=== PATIENT | female | born 1960 | race Caucasian/White ===

== ENCOUNTER → 2016-06-10 | Outpatient (CLI) | payer BC ==
[~2016-06-10] MED LIST: BYS/5 PO; DOCU-94 PO; LEVO75TA PO; MAGN400T6 PO; MISCCAP80 PO; OMEG10007 PO; SIMV20TA2 PO
--- NOTE | 2016-06-10 13:34 | MAMMOGRAPHY REPORT ---
BILATERAL DIGITAL SCREENING MAMMOGRAM TOMOSYNTHESIS WITH CAD: 06/10/2016 CLINICAL HISTORY: Routine screening. Patient has no complaints. TECHNIQUE: Breast tomosynthesis in addition to standard 2D mammography was performed. Current study was also evaluated with a Computer Aided Detection (CAD) system. COMPARISON: Comparison is made to exam dated: 08/29/2014 mammogram - [facility]. Also 07/04/2012 exam. BREAST COMPOSITION: There are scattered areas of fibroglandular density in both breasts. FINDINGS: No suspicious masses, calcifications, or areas of architectural distortion are noted in e ither breast. There has been no significant interval change compared to prior exams. IMPRESSION: ACR BI-RADS CATEGORY 1: NEGATIVE There is no mammographic evidence of malignancy. A 1 year screening mammogram is recommended. The p atient will receive written notification of the results. Approximately 10% of breast cancers are not detected with mammography. A negative mammographic repor t should not delay biopsy if a clinically suggestive mass is present. Lula Merino M.D. ah/:06/10/2016 07:53:58 Net Trainer: Raven CAO(R)(Sasha), [facility] letter sent: Normal 1/2 BI-RADS Code: ACR BI-RADS Category 1: Negative
== END | disposition home or self-care (01) ==
LOC: C.MAMM 07:09
PROVIDERS: ATTEND Family Medicine
DX: Z12.31 Encounter for screening mammogram for malignant neoplasm of breast (principal)

== ENCOUNTER → 2016-12-18 | Outpatient (CLI) | payer BC ==
[2016-12-18 11:11] LABS: ALT/SGPT 37 U/L (12-78); AST/SGOT 22 U/L (15-37); BLOOD UREA NITROGEN 20 mg/dl (7-18); BUN/CREATININE RATIO 26.8 (10-20); CALCIUM 8.4 mg/dl (8.5-10.1); CARBON DIOXIDE 27 mmol/L (21-32); CHLORIDE 107 mmol/L (98-107); CREATININE 0.73 mg/dl (0.60-1.20); GLUCOSE 89 mg/dl (70-99); SODIUM 139 mmol/L (136-145)
[2016-12-18 11:22] LABS: ALKALINE PHOSPHATASE 54 U/L (45-117); CHOLESTEROL 173 mg/dl (0-200); CHOLESTEROL/HDL RATIO 2.8; HDL CHOLESTEROL 61 mg/dl; LDL CHOLESTEROL CALCULATED 92 mg/dl; TRIGLYCERIDES 100 mg/dl (0-150); VERY LOW DENSITY LIPOPROT CALC 20 mg/dl
== END | disposition home or self-care (01) ==
LOC: C.LABBC 09:16
PROVIDERS: ATTEND Physician Assistant
DX: Z00.00 Encounter for general adult medical examination without abnormal findings (principal); E03.9 Hypothyroidism, unspecified

== ENCOUNTER 2022-03-23 08:39 | Observation (INO) ==
--- NOTE | 2022-03-04 13:15 | PAT Medication Instructions ---
Medication Instructions Date of Service March 04, 2022 Home Medications Medication Instructions Recorded buspirone 5 mg tablet 5 mg PO TID PRN anxiety #30 tabs 02/02/21 doxycycline hyclate 100 mg capsule 100 mg PO BID #14 caps 03/03/22 simvastatin 20 mg tablet See Rx Instructions .Route 03/03/22 .COMPLEX #90 tabs Lactobacillus acidophilus-Bifidobac.animalis 31 billion cell capsule 1 cap PO QAM omega-3 acid ethyl esters 1 gram capsule 1 cap PO HS magnesium oxide 500 mg capsule 400 mg PO HS docusate sodium 100 mg capsule (Colace) 100 mg PO DAILY PRN Constipation buspirone 5 mg tablet 5 mg PO TID PRN anxiety levothyroxine 75 mcg tablet 75 mcg PO QAM lisinopril 5 mg tablet 5 mg PO QAM nebivolol 10 mg tablet 10 mg PO QAM tramadol 50 mg tablet 50 mg PO HS PRN Pain/sleep doxycycline hyclate 100 mg capsule 100 mg PO BID simvastatin 20 mg tablet See Rx Instructions Continue as directed doxycycline hyclate 100 mg capsule 100 mg PO BID simvastatin 20 mg tablet See Rx Instructions STOP taking 2 weeks before surgery omega-3 acid ethyl esters 1 gram capsule 1 cap PO HS DO NOT take the morning of surgery Lactobacillus acidophilus-Bifidobac.animalis 31 billion cell capsule 1 cap PO QAM docusate sodium 100 mg capsule (Colace) 100 mg PO DAILY PRN Constipation lisinopril 5 mg tablet 5 mg PO QAM Take morning of surgery With a small sip of water, OTHERWISE NOTHING TO EAT OR DRINK AFTER MIDNIGHT: buspirone 5 mg tablet 5 mg PO TID PRN anxiety (if needed) levothyroxine 75 mcg tablet 75 mcg PO QAM nebivolol 10 mg tablet 10 mg PO QAM Take evening before surgery magnesium oxide 500 mg capsule 400 mg PO HS docusate sodium 100 mg capsule (Colace) 100 mg PO DAILY PRN Constipation (if needed) buspirone 5 mg tablet 5 mg PO TID PRN anxiety (if needed) tramadol 50 mg tablet 50 mg PO HS PRN Pain/sleep (if needed) Other Notes If you have any questions please call us at [phone] or [phone] or [phone] or [phone]
--- NOTE | 2022-03-09 15:09 | Anesthesiology Consultation ---
Date of Service March 09, 2022 Assessment & Plan (1) Encounter for pre-operative examination: - Outpatient joint assessment: Patient is currently scheduled for inpatient pathway. If re-evaluated pending system levels during current pandemic/surgeon requests outpatient pathway, patient is acceptable candidate for outpatient joint program from anesthesia standpoint pending surgeon's office assessment of pt motivation/support/completion of same day joint program preop requirements. Chart Review Chart Review: Acceptable Risk for Surgery and Patient seen in Pre Admission Testing Teaching & Discussion Pre-Anesthesia Teaching/Discussion Notes: Instructed NPO after midnight before surgery, except medications with 15 cc of water. Medication instructions provided according to the PAT guidelines. History Surgery Operation Date: 03/23/22 11:50 Proposed Procedures p Right Total Knee Arthroplasty - Joe Palomo DO Height/Weight Height: 5 ft 3.5 in Weight: 88.451 kg Allergies Allergy/AdvReac Type Severity Reaction Status Date / Time Penicillins Allergy Mild RASH Verified 03/04/22 11:58 Medications Home Medications Medication Instructions Recorded Confirmed Last Taken Lactobacillus 1 cap PO QAM 09/20/18 03/04/22 Unknown acidophilus-Bifidobac.animalis 31 billion cell capsule omega-3 acid ethyl esters 1 gram 1 cap PO HS 09/20/18 03/04/22 Unknown capsule magnesium oxide 500 mg capsule 400 mg PO HS 04/02/19 03/04/22 Unknown docusate sodium 100 mg capsule 100 mg PO DAILY PRN Constipation 12/11/19 03/04/22 Unknown (Colace) levothyroxine 75 mcg tablet 75 mcg PO QAM 02/26/22 03/04/22 Unknown lisinopril 5 mg tablet 5 mg PO QAM 02/26/22 03/04/22 Unknown nebivolol 10 mg tablet 10 mg PO QAM 02/26/22 03/04/22 Unknown tramadol 50 mg tablet 50 mg PO HS PRN Pain/sleep 02/26/22 03/04/22 Unknown doxycycline hyclate 100 mg capsule 100 mg PO BID #14 caps 03/03/22 03/04/22 Unknown simvastatin 20 mg tablet See Rx Instructions .Route 03/03/22 03/04/22 Unknown .COMPLEX #90 tabs Past Medical History Medical History (Updated 03/10/22 @ 11:48 by Beatriz Buck PA-C) Dyslipidemia Dysphagia persistent since 12/2021 dilatation with both foods and liquids, denies choking; sees GI 03/11/22 History of blood transfusion 1976 during childbirth, vaginal delivery Hx of chest pain ~2019, had stress test>no findings, "due to anxiety" Hypertension variable per pt, typically in good range Hypothyroidism Obesity (BMI 30-39.9) Sinus infection onset of symptoms 1 week prior, dx sinus infection by PCP, improvement since starting doxycycline, reports two negative COVID tests by employer, rare residual cough now nonproductive Patient denies h/o stroke, seizures, heart attack, heart failure, DM, or blood clots. Exercise / Class Metabolic Activity II 4-5 Yardwork/Stairs/Walk up hill (denies CP or SOB with 1 FOS) Past Family History Family History Mother Diabetes Myocardial infarction Aunt Breast cancer Grandfather (Maternal) Colorectal cancer Past Surgical History Surgical History (Updated 03/04/22 @ 11:58 by Odette Martínez RN) History of appendectomy History of bunionectomy History of carpal tunnel release of both wrists History of esophagogastroduodenoscopy (EGD) 12/2021; w/dilation History of total left knee replacement History of tubal ligation Hx of arthroscopy of knee rt. Hx of colonoscopy Past Anesthesia History No Hx of Anesthesia Complications and No Family Hx of Anesthesia Complications History of PONV No Hx of PONV and No Hx of Motion Sickness Social History Smoking Status: Never smoker Do You Dip or Chew Tobacco: No Hx Alcohol Use: Yes Alcohol type: beer alcohol intake frequency: holidays/special occasions only Hx Substance Use: No substance use type: does not use Review of Systems Snoring, denies witnessed apneas. Patient denies chest pain, shortness of breath, dyspnea on exertion, fever, chills, wheezing, or palpitations. Physical Exam Vital Signs Vitals BP 134/80 P 60 TEMP 98.3 SP02 98% on RA RESP 18 Physical Full cervical extension range of motion without pain TMD 3.5 finger breadths Mallampati Score 1 Dentition: intact, several caps/crowns; denies chipped or loose teeth, implants or bridges Lungs: normal respiratory effort. Clear throughout to auscultation, no adventitious breath sounds Cardiac: regular rate and rhythm, no murmurs noted Carotid arteries: negative bruit bilat Lab Results Anesthesia Preop Results Results Anesthesia Widget: WBC 6.37 K/ul (4.8-10.8) 03/09/22 Hgb 12.4 g/dl (12.0-16.0) 03/09/22 Hct 35.9 % (34.1-44.9) 03/09/22 Plt 340 K/uL (130-400) 03/09/22 Na 139 mmol/L (136-145) 03/09/22 K 4.1 mmol/L (3.5-5.1) 03/09/22 Cl 104 mmol/L (98-107) 03/09/22 CO2 28 mmol/L (21-32) 03/09/22 BUN 19 mg/dl (6-23) 03/09/22 Creat 0.71 mg/dl (0.6-1.2) 03/09/22 Glucose Level 87 mg/dl (70-99(Fasting)) 03/09/22 PT 10.7 Seconds (9.0-12.0) 03/09/22 PTT 25.9 Seconds (21.0-31.0) 03/09/22 INR 1.0 (0.9-1.1) 03/09/22 HA1c 5.4 % (4.5-5.6) 03/09/22 Urine Color Yellow 03/09/22 Urine Appearance Clear (Clear) 03/09/22 Urine pH 5.5 (4.5-7.5) 03/09/22 Urine Specific [place] 1.020 (1.000-1.030) 03/09/22 Urine Protein Negative (Negative) 03/09/22 Urine Glucose (UA) Negative (Negative) 03/09/22 Urine Ketones Negative (Negative) 03/09/22 Urine Blood Negative (Negative) 03/09/22 Urine Nitrite Negative (Negative) 03/09/22 Urine Bilirubin Negative (Negative) 03/09/22 Urine Urobilinogen Negative (Negative) 03/09/22 Urine Leukocyte Esterase 1+ (Negative) H 03/09/22 Urine WBC (Auto) 1-5 /hpf (0-5) 03/09/22 Urine RBC (Auto) 0-4 /hpf (0-4) 03/09/22 Urine Hyaline Casts (Auto) 0 /lpf (0-5) 03/09/22 Urine Epithelial Cells (Auto) 20-30 /lpf (0-5) H 03/09/22 Urine Bacteria (Auto) Negative (Negative) 03/09/22 Blood Type A Negative 03/09/22 Antibody Screen NEGATIVE 03/09/22 Testing Electrocardiogram Date: 03/09/22 NSR, rate 61 bpm Chest X-Ray Date: 03/09/22 No lines and tubes are seen. The cardiomediastinal silhouette is normal. The lungs are clear. No evidence of pleural effusion or pneumothorax. IMPRESSION: No acute chest disease. Stress Test Date: 01/17/20 Exercise METS 7 MPHR 86% Negative for ischemia Normal LV wall motion Mild LVH Mild LA dilatation EF 60-65% COVID-19 Risk Screen Screening Information COVID-19 Screen Date: 03/09/22 Exposure 21 Days Family/Household +COVID Last 21 Days: No Exposure 10 Days Any COVID Exposure Last 10 Days: No Symptoms Last 10 Days Experienced COVID Sx Last 10 Days: No + COVID 0-90 Days COVID + in Last 0-90 Days: No
[~2022-03-23 08:39] MED LIST changes: +ACETAMINOPHEN 500 MG TAB PO SCH; +BUPIVACAINE 0.25% 30 ML VIAL ONE; +BUPIVACAINE 0.5 % 5 MG/1 ML PF 10ML VIAL ONE; -BYS/5 PO; +CeleBREX 200 MG CAP PO SCH; +DEXAMETHASONE SOD INJ 4 MG/ML VIAL ONE; -DOCU-94 PO; +EPINEPHrine INJ 1 MG/ML AMP ONE; +FAMOTIDINE 20 MG TAB PO SCH; +GABAPENTIN 900 MG DOSE PO SCH; -LEVO75TA PO; +LR 500ML BOLUS, THEN 15ML/HR IV SCH; -MAGN400T6 PO; +METOCLOPRAMIDE HCL 10 MG TABLET PO SCH; -MISCCAP80 PO; -OMEG10007 PO; +ROPIVACAINE 0.5% HCL/PF 150 MG, BUPIVACAINE 0.75% MPF 20 ML, EPINEPHrine 30MG/30ML (OR ... INSTIL SCH; -SIMV20TA2 PO; +TRANEXAMIC ACID 1,000 MG **IV Intra-op IV SCH; +TRANEXAMIC ACID 1,000 MG **IV Pre-op IV SCH; +VANCOMYCIN HCL 1,500 MG in SODIUM CHLORIDE 0.9% 500 ML IV SCH; +dexAMETHasone 4 MG TAB PO SCH
--- NOTE | 2022-03-23 10:12 | History & Physical Bridge Note ---
Date of Service March 23, 2022 History & Physical Bridge Note I have examined the patient, reviewed the History & Physical and in the interval since the performance of the History & Physical I have noted the following changes of clinical significance: no changes noted
[2022-03-23] MEDS ORDERED: fentaNYL citrate 100 MCG/2 ML VIAL ONE (10:41)
[2022-03-23] MEDS ORDERED: MIDAZOLAM HCL 1 MG/ML 2ML VIAL ONE (10:41)
[2022-03-23] MEDS ORDERED: PROPOFOL IV EMULSION 10 MG/ML 20 ML VIAL IV ONE ×2 (10:41→12:43)
[2022-03-23] MEDS ORDERED: LIDOCAINE 2% MPF LOCAL 5 ML VIAL INFIL ONE (10:41)
[2022-03-23] MEDS ORDERED: ATROPINE SULFATE 0.1 MG/ML 10ML SYR IV PRN (11:48)
[2022-03-23] MEDS ORDERED: ePHEDrine sulfate 50 MG/ML AMP IV PRN (11:48)
[2022-03-23] MEDS ORDERED: fentaNYL citrate 100 MCG/2 ML VIAL IV PRN (11:48)
[2022-03-23] MEDS ORDERED: ONDANSETRON INJ 2 MG/ML 2 ML VIAL IV PRN ×2 (11:48→17:01)
[2022-03-23] MEDS ORDERED: ORTHO JOINT ANESTHETIC ONE (12:19)
[2022-03-23] MEDS ORDERED: ONDANSETRON INJ 2 MG/ML 2 ML VIAL ONE (12:46)
[2022-03-23] MEDS ORDERED: ePHEDrine sulfate 50 MG/ML AMP ONE (13:14)
[2022-03-23] MEDS ORDERED: SODIUM CHLORIDE 0.9% INJ 10 ML VIAL ONE (13:14)
--- NOTE | 2022-03-23 13:37 | Operative Report ---
Post Operative Report Pre & Post Diagnosis Operation Date: 03/23/22 11:50 Pre-Op Diagnosis: Osteoarthritis Knee Right Post-Op Diagnosis: Osteoarthritis Knee Right I identified the patient and participated in the time-out.: Yes Procedure Operation Date: 03/23/22 11:50 Actual Procedures p Right Total Knee Arthroplasty(Right) utilizing Lucas & Trovit journey 2 patient matched total knee arthroplasty size femur 5 right tibia 3 right poly 13 right patella 29 rachel- Joe Palomo DO Surgeon Joe Palomo DO Sand Screener Operator MAX Hernandes Estimated Blood Loss 5 Findings Consistent with Post-Op Diagnosis Patient presents with severe end-stage tricompartmental degenerative joint disease of the right knee no response to conservative management above intraoperative findings are noted patient has severe eburnated [id number] marginal osteophytes moderate to large effusion Specimens Bone and cartilage Drains Medium bore Hemovac Anesthesia Type MAC Spinal Regional Complications none Disposition Accompanied Patient To Recovery: No Disposition: Recovery Room Indications Patient presents with severe end-stage DJD having failed attempted conservative management clinic physical therapy anti-inflammatories relative rest activity modification corticosteroid injection viscosupplementation above intraoperative findings were noted Description of Procedure After proper prepping and draping of the Right lower extremity anterior midline incision was made over the region of the extensor extensor mechanism after meticulous hemostasis was obtained and maintained in subcutaneous tissues a medial parapatellar incision was made The patella was subluxed lateralward the medial lateral gutter were cleaned from any hypertrophic synovitis and scar tissue of the distal femoral block was placed and the distal femoral osteotomy cut was made subsequently the chamfers anterior and posterior osteotomy cuts were made utilizing the 4-in-1 block the tibia was subsequently subluxed anteriorward medial and ateral meniscal remnants were excised in their entirety remnants of the anterior and posterior cruciate ligaments were excised in their entirety excellent exposure of the proximal tibia was obtained the tibial osteotomy guide was placed on the proximal tibial osteotomy cut was made once again the knee was irrigated with copious amounts of sterile saline solution the patella was subsequently everted lateralward thickened scar tissue around the patella was removed the patella was subsequently cut utilizing a freehand technique and was drilled prepared for final preparation and placement of patella socially flexion-extension gaps were checked and the equal and symmetric trials were placed to the appropriate femoral and tibial trials with poly-spacer being placed for equal flexion and extension gaps and full range of motion including extension to 0 and flexion to 140 the trial components after having been taken to recovery range of motion was subsequently removed meticulous hemostasis was obtained and maintained subsequently a knee block injection of joint cocktail including ropivacaine 0.5% 150 mg. Bupivacaine 0.5% epinephrine 1-200,030 mL's toradol 30 mg dexamethasone 4 mg ketamine 10 mg clonidine 100 micrograms normal saline solution 30 mg was infiltrated into the soft tissues of the posterior knee medial lateral gutters and periosteal synovium special attention was paid to protect neurovascular structures at all times subsequently trial components having been removed the knee was irrigated with sterile saline solution. debris was removed the proximal tibia was subsequently prepared and was made ready for the placement of the tibial component tibial component was also cemented and tamped into position the femoral component was subsequently placed and cemented in the position the patellar component was subsequently cemented in position because hemostasis once again obtained and maintained wound having been thoroughly irrigated with debridement and debridement lavage was performed as well as a medial parapatellar incision closed with #1 Vicryl in interrupted fashion subcutaneous was closed with #2 Vicryl skin was closed with skin clips. PA-C was necessary for prepping and drapping as well as wound closure of deep fascia Sub cutaneous tissue and skin and was necessary for the case. A sterile compressive dressing was placed patient was taken to recovery in stable condition of report dictated by Dewey I attest to the content of the Intraoperative Record and any orders documented therein. Any exceptions are noted below.Due to the complex nature of the procedure, the entire surgery was performed with the operational assistance of MAX Hernandes. The behavioral modification assistant, under direct supervision, was involved in the actual performance of all aspects of the surgical procedure including hemostasis, tissue retraction and incision, instrument management, patient positioning, and wound closure. I attest to the content of the Intraoperative Record and any orders documented therein. Any exceptions are noted below.
--- NOTE | 2022-03-23 14:35 | Anesthesiology Progress Note ---
Date of Service March 23, 2022 Anesthesia Post Procedure Vital Signs Vital Signs: Temp Pulse Pulse Resp BP Pulse Ox O2 Del Method 03/23/22 14:25 69 16 109/58 L 94 Room Air 03/23/22 14:15 72 16 107/58 L 95 Room Air 03/23/22 14:06 36.7 C 75 17 104/55 L 99 Room Air 03/23/22 09:28 37 C 71 20 158/98 H 98 Room Air Transfer of Care Handoff Completed per policy Notes Mental Status: alert / awake / arousable Patient Amnestic to Procedure: Yes Nausea / Vomiting: adequately controlled Pain: adequately controlled Airway Patency, RR, SpO2: stable & adequate BP & HR: stable & adequate Hydration State: stable & adequate Neuraxial Anesthesia: was administered and sensory block is resolving Anesthetic Complications: no major complications apparent and Pt Satisfied with anesthetic care
--- NOTE | 2022-03-23 15:43 | XRay Report ---
XR knee RT 1 or 2V routine CLINICAL HISTORY: Surgical Post Op TECHNIQUE: 2 views of the right knee were obtained. Comparison: None available at the time of this dictation. FINDINGS: Patient is status post total knee arthroplasty with expected postsurgical changes including soft tiss ue swelling and subcutaneous emphysema. No periarticular lucency or hardware fracture is seen. IMPRESSION: Expected postoperative appearance status post placement of total knee arthroplasty. ACT 112: Negative or not required by law. Electronically signed by: Jesus Hernandez M.D. 03/23/2022 3:42 PM
[2022-03-23] MEDS ORDERED: HYDROmorphone INJ 1 MG/ML SYRINGE IV PRN (17:01)
[2022-03-23] MEDS ORDERED: VANCOMYCIN CONSULT ACTIVE PRN (17:01)
[2022-03-23] MEDS ORDERED: NALOXONE HCL 0.4 MG/1 ML VIAL/CARP IV PRN (17:01)
[2022-03-23] MEDS ORDERED: bisacodyL 10 MG SUPP PR PRN (17:01)
[2022-03-23] MEDS ORDERED: MAGNESIUM HYDROXIDE SUSP 30 ML UDC PO PRN (17:01)
[2022-03-23] MEDS ORDERED: diphenhydrAMINE Capsule 25 MG CAP PO PRN (17:01)
[2022-03-23] MEDS ORDERED: METOCLOPRAMIDE HCL INJ 5 MG/ML 2 ML VIAL IV PRN (17:01)
[2022-03-23] MEDS: SODIUM CHLORIDE 0.9% 1000ML 1,000 ML IV SCH (17:22)
[2022-03-23] MEDS ORDERED: SIMVASTATIN 20 MG TAB PO SCH (21:00)
[2022-03-23] MEDS ORDERED: SENNA 8.6 MG TAB PO SCH (21:00)
[2022-03-23] MEDS ORDERED: MAGNESIUM OXIDE 400 MG TAB PO SCH (21:00)
[2022-03-23] MEDS ORDERED: VANCOMYCIN HCL 1,250 MG in SODIUM CHLORIDE 0.9% 250 ML IV SCH (22:00)
[2022-03-23] MEDS: ASPIRIN 81 MG ECTAB PO SCH (22:13)
[2022-03-23] MEDS: DOCUSATE SODIUM 100 MG CAP PO SCH (22:14)
[2022-03-23] MEDS: ACETAMINOPHEN 500 MG TAB PO SCH (22:15)
[2022-03-23] MEDS: KETOROLAC TROMETHAMINE 15 MG/ML VIAL IV SCH (22:16)
[2022-03-24] MEDS ORDERED: VANCOMYCIN HCL 1,250 MG in SODIUM CHLORIDE 0.9% 500 ML IV SCH (00:15)
[2022-03-24] MEDS: KETOROLAC TROMETHAMINE 15 MG/ML VIAL IV SCH ×2 (04:36→10:19)
[2022-03-24] MEDS: ACETAMINOPHEN 500 MG TAB PO SCH (05:04)
[2022-03-24] MEDS: SODIUM CHLORIDE 0.9% 1000ML 1,000 ML IV SCH (05:40)
[2022-03-24 06:50] LABS: Hematocrit (blood only) 30.7 % (34.1-44.9); Hemoglobin 10.6 g/dl (12.0-16.0); Mean Corpuscular Hemoglobin 30.5 pg (25.0-34.0); Mean Corpuscular Hgb Conc 34.5 g/dL (32.0-36.0); Mean Corpuscular Volume 88.5 fL (80.0-100.0); Mean Platelet Volume 9.6 fL (9.4-12.3); Platelet Count 259 K/uL (130-400); RDW Coefficient of Variation 12.1 % (11.5-14.5); RDW Standard Deviation 39.1 fL (36.4-46.3); Red Blood Count 3.47 M/uL (3.93-5.22); White Blood Count 12.78 K/ul (4.8-10.8)
[2022-03-24 07:18] LABS: BUN Creatinine Ratio 28.6 (10-20); Calcium 8.6 mg/dl (8.5-10.1); Creatinine Clr Calc Pharmacy 78.5 ml/min; Est GFR (African American) 95.2 ml/min; Est GFR (Non-African American) 82.2 ml/min; Potassium 4.2 mmol/L (3.5-5.1)
[2022-03-24] MEDS: DOCUSATE SODIUM 100 MG CAP PO SCH (08:06)
[2022-03-24] MEDS: oxyCODONE HCL IR 5 MG TAB (IMMEDIATE RELEASE) PO PRN ×2 (08:06→12:19)
[2022-03-24] MEDS: ASPIRIN 81 MG ECTAB PO SCH (08:06)
[2022-03-24] MEDS ORDERED: MULTIVITAMIN TAB PO SCH (09:00)
[2022-03-24] MEDS ORDERED: METOPROLOL TARTRATE 50 MG TAB PO SCH (09:00)
[2022-03-24] MEDS ORDERED: lisinopril 5 MG TAB PO SCH (09:00)
[2022-03-24] MEDS ORDERED: LEVOTHYROXINE SODIUM 75 MCG TABLET PO SCH (09:00)
--- NOTE | 2022-03-24 10:58 | Orthopedic Progress Note ---
Date of Service March 24, 2022 Assessment & Plan (1) Arthritis of right knee: Plan: Postop day 1 status post right total knee arthroplasty. PT/OT protocols. Weightbearing as tolerated. DVT prophylaxis-aspirin p.o. twice daily, SCDs, MARCO ANTONIO alexis. Pain management as written. DC planning-patient is planning for home health services upon discharge. Plan for discharge to home today. Admission and Anticipated Discharge Date Admission Date: March 23, 2022 Subjective Postop day 1 Patient sitting in her chair at the bedside. States that she is feeling well. She has had some pain off and on in the operative knee but it has been managed quite well. She was concerned about her blood pressure is normally high however its been running on the low side. This morning's blood pressure was 106/67. Patient denies any shortness of breath, chest pain, lightheadedness when she is up and ambulating. She is hoping to go home today. Physical Exam Physical Exam: Dressings are clean, dry, and intact. Calves are soft nontender. Neurovascular intact. Toes are mobile. She has good dorsiflexion and plantarflexion of the right foot. Results & Data ([facility]) Vital Signs (Past 12 Hours) Vital Signs Temp Pulse Resp BP BP Pulse Ox O2 Del Method 03/24/22 07:38 36.7 C 65 16 106/67 96 Room Air 03/24/22 01:52 36.6 C 75 16 100/61 97 Room Air Laboratory Results Laboratory Results WBC 12.78 K/ul (4.8-10.8) H 03/24/22 06:37 RBC 3.47 M/uL (3.93-5.22) L 03/24/22 06:37 Hgb 10.6 g/dl (12.0-16.0) L 03/24/22 06:37 Hct 30.7 % (34.1-44.9) L 03/24/22 06:37 MCV 88.5 fL (80.0-100.0) 03/24/22 06:37 MCH 30.5 pg (25.0-34.0) 03/24/22 06:37 MCHC 34.5 g/dL (32.0-36.0) 03/24/22 06:37 RDW Std Deviation 39.1 fL (36.4-46.3) 03/24/22 06:37 RDW Coeff of Flakita 12.1 % (11.5-14.5) 03/24/22 06:37 Plt Count 259 K/uL (130-400) 03/24/22 06:37 MPV 9.6 fL (9.4-12.3) 03/24/22 06:37 Sodium 137 mmol/L (136-145) 03/24/22 06:37 Potassium 4.2 mmol/L (3.5-5.1) 03/24/22 06:37 Chloride 109 mmol/L (98-107) H 03/24/22 06:37 Carbon Dioxide 22 mmol/L (21-32) 03/24/22 06:37 Anion Gap 6 (3-11) 03/24/22 06:37 BUN 22 mg/dl (6-23) 03/24/22 06:37 Creatinine 0.77 mg/dl (0.6-1.2) 03/24/22 06:37 Est Cr Clr Drug Dosing 78.5 ml/min 03/24/22 06:37 Est GFR ( Amer) 95.2 ml/min 03/24/22 06:37 Est GFR (Non-Af Amer) 82.2 ml/min 03/24/22 06:37 BUN/Creatinine Ratio 28.6 (10-20) H 03/24/22 06:37 Glucose 128 mg/dl (70-99(Fasting)) H 03/24/22 06:37 Calcium 8.6 mg/dl (8.5-10.1) 03/24/22 06:37 SARS-CoV-2, RNA, NAAT NEGATIVE (NEGATIVE) 03/23/22 09:05 Impressions Knee X-Ray 03/23/22 14:09 XR knee RT 1 or 2V routine CLINICAL HISTORY: Surgical Post Op TECHNIQUE: 2 views of the right knee were obtained. Comparison: None available at the time of this dictation. FINDINGS: Patient is status post total knee arthroplasty with expected postsurgical changes including soft tissue swelling and subcutaneous emphysema. No periarticular lucency or hardware fracture is seen. IMPRESSION: Expected postoperative appearance status post placement of total knee arthroplasty. ACT 112: Negative or not required by law. Electronically signed by: Jesus Hernandez M.D. 03/23/2022 3:42 PM
--- NOTE | 2022-03-24 16:20 | Discharge Summary ---
Date of Service date of discharge: March 24, 2022 date of admission: 03/23/22 Principal Diagnosis right knee arthritis Discharge Data Allergies Allergy/AdvReac Type Severity Reaction Status Date / Time Penicillins Allergy Mild RASH Verified 03/23/22 09:13 Procedures Performed Operation Date: 03/23/22 11:50 Actual Procedures p Right Total Knee Arthroplasty(Right) - Joe Palomo DO Ordered Studies 03/23/22 05:00 US - OR guided needle placemen Routine Total Time Total Time Spent Total Time Spent (In Minutes): 20 Discharge Plan Discharge Items Patient Disposition: Home - Home Health Services Reason For Visit: POST OP TKA Discharge Diagnosis: Right total knee replacement Activity: Per Instructions section Weightbearing: Right weightbearing Weightbearing Comment: WBAT with walker Non-emergency contact: Surgeon Call non-emergency contact if: you have any medication questions, your temperature is above 101, your wound has increased redness, your wound has increased drainage and your wound pain has increased Follow-up/Referrals: Joe Palomo DO [Surgeon] - (Follow-up with Dr. Palomo or his PA in 2 weeks from the day of your surgery for your first postoperative visit.) Jeremias Crump DO [Primary Care Provider] - Diet: Regular Addtl Attending Provider Instructions: ACTIVITY RECOMMENDATIONS: SELF CARE INSTRUCTIONS AFTER TOTAL KNEE REPLACEMENT A. You may need to continue a physical therapy program after discharge from the hospital. There are several options available to you. Your doctor will assist you in selecting the best one for you. 1. An out-patient facility 2 to 3 times a week for therapy or home therapy. 2. Continue working on all exercises taught to you in the hospital. Your goals should be to increase bending of your knee to 90 degrees and beyond and to fully straighten your knee. B. You may progress at your own pace from walking with a walker or crutches to a cane; then to no assistive devices. C. Make walking a part of your daily routine. Be up as much as comfortable with rest periods throughout the day. Rest with leg elevation is very important. Use the ice wrap frequently for the first 3-4 weeks. D. There are no restrictions on activities. You may ride in a car, shop, participate in crochet beader and all social activities. E. Wear the long elastic stockings (MARCO ANTONIO hose) 20 hours a day for 2 weeks after surgery. They can be removed several times a day for laundering and for a bath. F. You may shower, no tub baths until cleared by your doctor. SPECIAL CARE INSTRUCTIONS: VERY IMPORTANT TO READ AND REVIEW A. There are a few signs you need to watch for after you are home. Call [facility] if you notice any of the followin. Increased severe knee pain. Some pain is expected especially when you exercise. 2. Increased swelling in your leg or knee; pain or swelling of the calf muscle in either lower leg. 3. Any fluid drainage from the incision. 4. Shortness of breath or chest pain. B. Please call [facility] at if you have any concerns or questions about your operation or recovery. The doctor or his nurse will return your call promptly. C. You must take antibiotics before dental work, bladder, bowel or other surgery. Your doctor will provide you with a permanent care to carry describing this precaution. IMPORTANT: * REMEMBER TO TAKE ASPIRIN, 81 MG, TWICE DAILY FOR 4 WEEKS UNLESS OTHERWISE DIRECTED. THIS IS YOUR BLOOD THINNER. * HIGH RISK PATIENTS MAY BE PRESCRIBED A STRONGER BLOOD THINNER. THIS WILL BE PROVIDED AT DISCHARGE. * CALL IF INCREASED PAIN, REDNESS, DRAINAGE OR FEVER GREATER THAT 101. * WEAR MARCO ANTONIO HOSE 20 HOURS PER DAY FOR 2 WEEKS. * DRESSING INSTRUCTIONS * OCHOA Dressing- This is a large suction dressing covering your incision. This will help pull any excess drainage from the wound and allow your incision to heal properly. You may shower with this if you can keep the unit outside of the shower. If any bleeding or leakage is noted please call your doctor's office. This will remain on your incision for 7 days and then should be removed. This can be done yourself or by the home nursing staff if applicable. The entire unit is disposable once removed. Once removed, keep incision clean and dry. If redness or drainage is noted, please call your surgeon. ONCE OCHOA IS REMOVED, FOLLOW THESE INSTRUCTIONS: DERMABOND Prineo- This is a mesh tape dressing that is covered with glue. It should remain in place until the incision is properly healed, usually 10-14 days. This dressing is designed to naturally slough off. You may trim the excess mesh tape as it peels off. Incision may be briefly wet in a shower. Dry immediately by blotting with a clean, dry towel. Do not bath or swim until instructed by your doctor. Do not scratch, rub, or pick at the dressing. Do not apply any topical ointments or lotions until dressing is completely removed and/or instructed by your doctor. There may be a small piece of suture material at one end of your incision. Do not pull or trim this. If it is bothersome or catching on clothing, you may cover it with a band-aid. IF INCISION IS LEAKING THROUGH DRESSING, CALL THE OFFICE . FOLLOW UP VISIT: If appointment is not already scheduled: Please call [facility] to make a follow-up appointment for 2 weeks after your surgery at . Stand-Alone Forms: My [facility] Medications and DC Order Prescriptions: New celecoxib [Celebrex] 200 mg Capsule 200 mg PO BID 7 Days Qty: 14 0RF aspirin 81 mg Tablet,Delayed Release (Dr/Ec) 81 mg PO BID 30 Days Qty: 60 0RF acetaminophen [Tylenol Extra Strength] 500 mg Tablet 1,000 mg PO Q8 14 Days Qty: 84 0RF doxycycline hyclate 100 mg capsule 100 mg PO BID 7 Days Qty: 14 1RF polyethylene glycol 3350 [Miralax] 17 gram powder in packet 17 g PO DAILY PRN (Reason: constipation) Qty: 5 0RF oxycodone 5 mg tablet 5 mg PO Q4H MDD 6 PRN (Reason: pain) Qty: 30 0RF Continued simvastatin 20 mg tablet See Rx Instructions .ROUTE .COMPLEX Qty: 90 3RF Dose Instruction: Take 1 tablet by mouth once daily Rx Instructions: Take 1 tablet by mouth once daily docusate sodium [Colace] 100 mg capsule 100 mg PO DAILY PRN (Reason: Constipation) L. acidophilus/Bifid. animalis 31 billion cell capsule 1 cap PO QAM magnesium oxide 500 mg capsule 400 mg PO HS levothyroxine 75 mcg tablet 75 mcg PO QAM lisinopril 5 mg tablet 5 mg PO QAM nebivolol 10 mg tablet 10 mg PO QAM Discontinued doxycycline hyclate 100 mg capsule 100 mg PO BID Qty: 14 0RF omega-3 acid ethyl esters 1 gram capsule 1 cap PO HS tramadol 50 mg Tablet 50 mg PO HS PRN (Reason: Pain/sleep) Discharge Orders: Discharge Order (Routine); Ordered 03/24/22 Ordered By: Bridger Guthrie Admission Data Admit Date/Time: 03/23/22 14:09 Attending Provider: Joe Palomo Admit Provider: Joe Palomo Primary Care Provider: Jeremias Crump Other Interventions: Discharge Summary Assessment (RN) Last Done: 03/24/22 12:05
[2022-03-24] MEDS ORDERED: CeleBREX 200 MG CAP PO SCH (21:00)
== END 2022-03-24 13:39 | disposition home health service (06) ==
LOC: ASU 08:39 → PACUINP 08:39 → 3E 16:29

== ENCOUNTER 2024-01-28 10:56 | Observation (INO) ==
--- NOTE | 2024-01-28 11:21 | XRay Report ---
XR chest 1V portable HISTORY: 63 years-old Female Chest pain, nonspecific COMPARISON: 03/09/2022 TECHNIQUE: AP view of the chest FINDINGS: Cardiomediastinal and hilar silhouettes are within normal limits. No pneumothorax, pleural effusion o r airspace consolidation. Degenerative changes of the shoulders and spine. Bones appear grossly intac t. IMPRESSION: No acute process. ACT 112: Negative or not required by law. The above report was generated using voice recognition software. It may contain grammatical, syntax o r spelling errors. Electronically signed by: Cam Dupont M.D. 01/28/2024 11:20 AM
[2024-01-28 11:40] LABS: Basophils # (auto) 0.07 K/uL (0.00-0.20); Basophils % (auto) 1.2 %; Eosinophils # (auto) 0.22 K/uL (0.00-0.50); Eosinophils % (auto) 3.7 %; Hematocrit (blood only) 39.2 % (37.0-47.0); Hemoglobin 13.6 g/dl (12.0-16.0); Immature Granulocytes # (auto) 0.01 K/uL (0.01-0.20); Immature Granulocytes % (auto) 0.2 %; Lymphocytes # (auto) 1.82 K/uL (1.20-3.40); Lymphocytes % (auto) 30.2 %; Mean Corpuscular Hemoglobin 31.1 pg (25.0-34.0); Mean Corpuscular Hgb Conc 34.7 g/dL (32.0-36.0); Mean Corpuscular Volume 89.5 fL (80.0-100.0); Mean Platelet Volume 9.8 fL (9.4-12.4); Monocytes # (auto) 0.52 K/uL (0.11-0.59); Monocytes % (auto) 8.6 %; Neutrophils # (auto) 3.38 K/uL (1.40-6.50); Neutrophils % (auto) 56.1 %; Platelet Count 316 K/uL (130-400); RDW Standard Deviation 39.1 fL (36.4-46.3); Red Blood Count 4.38 M/uL (4.20-5.40); White Blood Count 6.02 K/ul (4.8-10.8)
[2024-01-28 12:06] LABS: Albumin Globulin Ratio 1.6 (0.9-2); Albumin Level 4.7 gm/dl (3.4-5.0); BUN Creatinine Ratio 17.6 (10-20); Bilirubin,Total 0.6 mg/dl (0.2-1.0); Calcium 10.4 mg/dl (8.6-10.3); Creatinine Clr Calc Pharmacy 82.2 ml/min; Globulin 2.9 gm/dl (2.5-4.0); Potassium 3.9 mmol/L (3.5-5.1); Total Protein 7.6 gm/dl (6.0-8.3)
[2024-01-28 12:13] LABS: Troponin I High Sensitivity 5.1 pg/ml (0-14)
--- OUTSIDE RECORDS SUMMARY | 2024-01-28 12:18 | External Medical Summary | Summary of Care ---
Author Name Unknown Organization [facility] Address [address] [place] [address] Phone [phone] Care Team Providers Care Parachute Packer Name Role Phone Alisia Jeremias Julio Cesar DURAN Primary Care Provider [phone] Reason for Referral * Evaluate & Treat - Unlimited Visits (Within 30 days (routine)) - Authorized Specialty Diagnoses / Procedures Referred By Contact Referred To Contact Cardiovascular Medicine / Cardiology Diagnoses Tachycardia Samantha Bennett PA-C [address] [place] [address] [id number] Phone: tel: fax: Referral ID Status Reason Start Date Expiration Date Visits Requested Visits Authorized [id number] Authorized Specialty Services Required 4 [phone] Question Answer Referral Priority Within 30 days (routine) Where should this appointment be scheduled? [facility] To which of the following clinics are you referring your patient? General Cardiology Clinic Reason for Visit * Reason Comments Emergency Department Follow-Up Rectal bl eeding-no other episodes noted since ER, went to urgent care in [place] on 01/12 for cellulitis left lower leg Encounter Details Date Type Department Care Team (Late st Contact Info) Description 01/24/2024 3:40 PM EST Office Visit [facility] [address] [place] [address] [phone] Samantha Bennett PA-C [address] [place] [id number] Tachycardia*; HTN, goal below 140/90; Gastroesophageal reflux disease without esophagitis; Cellulitis of left lower extremity Allergies Active Allergy Reactions Criticality Noted Date Comments Penicillins Hives Medium 11/01/2011 documented as of this encounter (statuses as of 01/24/2024) Medications FISH OIL 1200 MG PO CAPS Take 1 Capsule by mouth every evening. Active PRO-BIOTIC BLEND PO CAPS 1 tablet daily Active LEVOTHYROXINE SODIUM 75 MCG OR TABSIndications :Hypothyroidism TAKE ONE TABLET BY MOUTH ONCE DAILY 90 Tab 0 05/16/2014 Active Lisinopril 10 MG Oral Tablet (Prinivil)Indic ations:in am Take 1 Tablet by mouth in the morning. Active Vitamin D3 1000 UNIT Oral Capsule Take 1 Capsule by mouth daily. Active Vitamin B-12 1000 MCG Oral Tablet (Cyanocobalamin ) Take 1 Tablet by mouth in the morning. Active Rosuvastatin Calcium 5 MG Oral Tablet (Crestor) Take 1 Tablet by mouth daily. Active Omeprazole 20 MG Oral Capsule Delayed Release (PriLOSEC) Take 1 Capsule by mouth in the morning. 01/03/2024 Active documented as of this encounter (statuses as of 01/24/2024) Active Problems Problem Noted Date Diagnosed Date Hyperlipidemia with target LDL less than 160 Overview (07/14/2015): ICD-10 update of inactive term Hypothyroidism 11/01/2011 HTN, goal below 140/90 11/01/2011 documented as of this encounter (statuses as of 01/24/2024) Resolved Problems Problem Noted Date Diagnosed Date Resolved Date Arthritis, rheumatoid 11/01/20112011 documented as of this encounter (statuses as of 01/24/2024) Immunizations Name Administration Dates Next Due COVID-19 mRNA, LNP-s, No Pre serve, 2-Dose Series (Prism Digital) 03/27/2021,04/08/2020,03/18/2020 PPD 10/02/2002 Seasonal Influenza Vac., MDV , IM, 0.5 mL (Fluzone) 01/26/2013,01/13/2012 Seasonal Influenza Virus Vac cine, Unspecified Formulation 01/03/2024,12/12/2021,01/01/2020,2012,01/13/2012 TD, Preservative Free 12/12/2013 TDAP (age 10 and older)(Boostrix) 04/29/2014, TDAP, Age 7 and older, IM (Adacel) 04/29/2014 documented as of this encounter Social History Tobacco Use Types Packs/Day Years Used Date Smoking Tobacco: Never Smokeless Tobacco: Never Alcohol Use Standard Drinks/Week Comments Yes 0 (1 standard drink = 0.6 oz pur e alcohol) rare - a beer rare Utilities Answer Date Recorded Do you have trouble paying y our heating, water, or electric bill? (Adult - for ages 18 years and over) Not on file 08/30/2023 Is your family able to pay t he heat, water, or electric bill? (Household - for ages 0-17 years) Not on file 08/30/2023 Does your family have access to good internet? (Household - for ages 0-17 years) Not on file 08/30/2023 Social Connections Answer Date Recorded How often do you feel lonely or isolated from those around you? 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 History of Present Illness Sheila Loving is a 63 year old female that presents for Emergency Department Follow-Up (Rectal bleeding-no other episodes noted since ER, went to urgent care in [place] on 01/12 for cellulitis left lower leg ) Patient is a 63 year old female who presents for a follow up to a visit to the ER on 01/02. Went due to rectal bleeding with bowel movements. Some clotting . Stools are soft and regular. Still on prilosec due to burning. Denies nausea, vomiting, diarrhea, constipation. No blood noted since. Also had cellulitis in left lower extremity. Seen at urgent care. Was placed on doxycycline. Recent zio patch done. Physical Exam Vitals: 01/24/24 1611 Temp: 37.2 C (98.9 F) Pulse: 76 Resp: 16 BP: 120/60 BP Readings from Last 3 Encounters: 01/24/24 120/60 12/29/23 118/72 03/11/22 114/72 Wt Readings from Last 3 Encounters: 12/29/23 91.2 kg (201 lb) 03/11/22 90 kg (198 lb 6.4 oz) 01/04/22 88 kg (194 lb) General: alert, healthy, no distress, well nourished, well developed, comfortable, and cooperative Head: Normocephalic, No masses, lesions, tenderness or abnormalities Eye Exam: PERRLA, extraocular movements intact, conjunctiva are pink and non- injected, sclera clear Neck: supple, no adenopathy, no bruits, thyroid normal size, non-tender, without nodularity Heart: regular rate & rhythm, no murmur, and no gallops Lungs: chest symmetric with normal AP diameter, no chest deformities noted, normal respiratory rateand rhythm, no chest wall tenderness, diaphragmatic excursion normal, lungs clear to auscultation Abdomen: abdomen soft, non-tender, normal bowel sounds, no masses or organomegaly, no rebound or guarding, no CVA tenderness, and no bladder distention identified Back: back symmetric, no curvature, no costovertebral angle tenderness, range of motion is normal, no skin lesions, erythema or scars, no tenderness to percussion or palpation Extremities: less than 2 second capillary refill, no joint deformities, effusion, or inflammation, no edema, no skin discoloration, no clubbing, no cyanosis I have reviewed the following results: None Assessment and Plan Tachycardia (Primary) - CARDIOLOGY REFERRAL OP HTN, goal below 140/90 Gastroesophageal reflux disease without esophagitis Cellulitis of left lower extremity Check-out note: Schedule with cardiology Wrap-Up Time: I spent a total of 20-29 minutes (exact time 28 mins) on the date of service in preparation, delivery, and documentation of the care provided to Sheila Loving excluding any time spent in the performance of separately billed services. documented in this encounter Nursing Notes * Desiree Tavarez LPN - 01/24/2024 4:10 PM EST The patient has been properly identified by confirmation of name and date of . Chief Complaint Patient presents with Emergency Department Follow-Up Rectal bleeding-no other episodes noted since ER, went to urgent care in [place] on 01/12 forcellulitis left lower leg documented in this encounter Plan of Treatment Upcoming Encounters Date Type Department Care Team (Late st Contact Info) Description 05/29/2024 10:00 AM EDT Office Visit Cardiology, [facility] [address] [place] [id number] Tom Corea, [address] [place] [id number] 06/26/2024 8:00 AM EDT Imaging Radiology [facility] [address] [place] [id number] Scheduled Referrals Name Type Priority Associated Diagnoses Orde r Schedule CARDIOLOGY REFERRAL OP Referral Within 30 days (routine) Tachycardia Ordered: 01/24/2024 Health Maintenance Due Date Last Done Comments Depression Screening 1971 HIV Screening 1974 Albumin/Creatinine Ratio 1977 Hepatitis C Screening 1977 Pap Smear 1980 Cervical Cancer Screening 1989 HPV/Co-Test 1989 Cologuard 2004 Colonoscopy 2004 Colorectal Cancer Screening 2004 Fecal Occult Blood Test 2004 Sigmoidoscopy 2004 Zoster Vaccines (1 of 2) 2009 Mammogram 07/04/2013 07/04/2012 GFR 04/28/2014 04/28/2013, 11/06/2011 TSH 04/28/2014 04/28/2013, 11/06/2011 Diabetes Screening 04/28/2016 04/28/2013, 11/06/2011 Lipid Panel 04/28/2018 04/28/2013, 11/06/2011 COVID-19 Vaccine ( season) 2023 03/27/2021, 04/08/2020, 03/18/2020 DTap/Tdap Vaccines (5 - Td or Tdap) 04/29/2024 04/29/2014, 04/29/2014, 12/12/2013, Additional history exists Influenza Vaccine (FLU shot) Completed , 12/12/2021, 01/01/2020, Additional history exists HPV (Gardasil) Vaccine Aged Out No lo nger eligible based on patient's age to complete this topic Hepatitis B Vaccine Aged Out No longe r eligible based on patient's age to complete this topic MENINGOCOCCAL (MENACTRA/MENVEO) Aged Out No longer eligible based on patient's age to complete this topic Pneumococcal Vaccine: Pediatrics (0 to 5 Years) and At-Risk Patients (6 to 64 Years) Aged Out No longer eligible based on patient's age to complete this topic documented as of this encounter Medical Devices Not on filedocumented as of this encounter Visit Diagnoses Diagnosis Tachycardia- Primary Tachycardia, unspecified HTN, goal below 140/90 Unspecified essential hypertension Gastroesophageal reflux disease without esophagitis Esophageal reflux Cellulitis of left lower extremity Cellulitis and abscess of leg, except foot documented in this encounter Care Teams Parachute Packer Relationship Specialty Start Date End Date Jeremias Crump DO [address], [place] [address] PCP - General Family Medicine 03/11/22 documented as of this encounter
--- NOTE | 2024-01-28 12:31 | Emergency Department Note ---
Impression & Plan V tach, SVT (supraventricular tachycardia), Pre-syncope, Hypertension ED Provider Note NAME: DANAY ALEX AGE: 63 SEX: F : 1960 ARRIVES VIA: Walk-In INFORMANT: Patient, ED PROVIDER(S): Bert Null MD CHIEF COMPLAINT: Elevated blood pressure, irregular heartbeat HPI: This is a 53-year-old female presenting for irregular heartbeat/high blood pressure patient notes that this morning she had episodes where her blood pressure felt high. She also notes that her heart rate was fluctuant between the 50s and 100s. She notes that she will did wear a heart monitor over the past few weeks and was told the results included ventricular tachycardia, SVT. She notes that she has had episodes today that felt like previous tachycardia episodes. She did not have any actual passing out episode. She does feel lightheaded with these episodes. No current nausea, vomiting or diarrhea. No chest pain or shortness of breath. ROS: See above HPI for pertinent positives & negatives. A total of 10 systems reviewed and were otherwise negative. PAST MEDICAL HISTORY: See Below PAST SURGICAL HISTORY: See Below FAMILY HISTORY: See Below SOCIAL HISTORY: See Below HOME MEDICATIONS: See Below ALLERGIES: See Below VITALS: See Below PHYSICAL EXAMINATION: General: resting comfortably in no acute distress Head: Normocephalic and atraumatic Eyes: Normal inspection, extraocular muscles intact Ear, nose, throat: Normal external exam Neck: Normal range of motion Respiratory: lungs clear to auscultation bilaterally Cardiovascular: Regular rate/rhythm, no murmur GI: soft, nontender, no guarding or rebound Extremities: nontender, moves all extremities Neuro: The patient awake and alert, appropriately conversive, no focal deficits, symmetric faces Skin: Warm, dry, and intact MEDICAL DECISION MAKING: This is a 63-year-old female present for irregular heartbeat/high blood pressure. Patient currently has a reassuring blood pressure 130s. Was initially higher in the 180s. Currently she is on the monitor, resting in normal sinus rhythm. EKG is reassuring as below. -ECG independently interpreted by me with normal sinus rhythm, rate of 81, normal [place], normal QRS, normal QTc, no ST segment elevations consistent with STEMI criteria -I am able to review patient's report on her phone, and this reveals 2 episodes of ventricular tachycardia lasting 6 beats with max rate of 174. She is 17 SVT events with rates as high as 245 and as long as for 35 seconds. Average heart rate was 201 during these episodes. -I do see on the monitor that she does have occasional PVCs as well. -Chest Xray independently interpreted by me showing no pneumothorax, focal opacity, or pleural effusions. -Bloodwork is reviewed showing no significant leukocytosis, anemia, electrolyte or creatinine abnormality, negative troponin -Discussed with Dr. Quintanilla, cardiology, who recommends admission for the symptoms and Holter monitor report -Discussed care with Dr. Menjivar for admission Differential diagnosis: Tachydysrhythmia, syncope, ACS, PE ER treatment provided: See below Independent History obtained from: Diagnostics interpreted by me: ECG: ECG independently interpreted by me with normal sinus rhythm, rate of 81, normal axis, normal [place], normal QRS, normal QTc, no ST segment elevations consistent with STEMI criteria Cardiac Monitoring: An order was placed for continuous cardiac monitoring. The monitor shows a rate of 93 with sinus rhythm. Laboratory studies: As stated above and show below. Imaging studies: See below. Past Med/Surg History Problem List (Updated 01/28/24 @ 18:40 by Bert Null MD) Pre-syncope (Acute) V tach (Acute) SVT (supraventricular tachycardia) (Acute) Lumbar radiculopathy GERD (gastroesophageal reflux disease) Hypertension (Acute) Dyslipidemia (Chronic) Hypothyroidism (Acute) Obesity (BMI 30-39.9) Medical History Leg length discrepancy Greater trochanteric pain syndrome COLTEN positive History of blood transfusion 1976 during childbirth, vaginal delivery Hx of chest pain ~2019, had stress test>no findings, "due to anxiety" Dysphagia persistent since 12/2021 dilatation with both foods and liquids, denies choking; sees GI 03/11/22 Surgical History History of total right knee replacement (~2022) History of appendectomy History of carpal tunnel release of both wrists Hx of arthroscopy of knee Hx of colonoscopy History of esophagogastroduodenoscopy (EGD) History of total left knee replacement History of bunionectomy History of tubal ligation Family History Mother Diabetes Myocardial infarction Aunt Breast cancer Grandfather (Maternal) Colorectal cancer Social History Smoking Status: Never smoker Second Hand Exposure: Yes (as a child); Do You Dip or Chew Tobacco: No; Hx Alcohol Use: No Hx Substance Use: No Preferred Language: Wolof Communication Ability: Effective Visual Impairment: Diminished Hearing Ability: Normal Wind Operations Manager Required: No Beliefs That Will Affect Care: None marital status: Current Living Situation: Spouse Current Living Situation Comment: two story, its possible to have it on one floor, 12 stairs to second jatinder current occupational status: employed Other Information That Helps Us Care for You: No Feels Safe at Home: Yes Safety Concerns: Feels Safe At This Time Childhood Exposure to Second-Hand Smoke: Yes Diet: regular caffeine: Yes Dental Care, Regularly: Yes Physical Activity Frequency: Daily Physical Activity Frequency Comment: WALK Seatbelt Use: always Sunscreen Use: Yes Assistive Devices: Glasses Assistive Devices Comment: Reading glasses Allergies Allergies Allergy/AdvReac Type Severity Reaction Status Date / Time Penicillins Allergy Mild RASH Verified 12/05/23 14:26 Home Meds Home Medications Medication Instructions Recorded Confirmed Lactobacillus 1 cap PO QAM 09/20/18 01/28/24 acidophilus-Bifidobac.animalis 31 billion cell capsule levothyroxine 75 mcg tablet 75 mcg PO DAILY 01/03/24 01/28/24 Previous Rx's Medication Instructions Recorded polyethylene glycol 3350 17 gram 17 g PO DAILY PRN constipation #5 03/24/22 oral powder packet (Miralax) ea mecobalamin (vitamin B12) 1,000 1,000 mcg PO DAILY #1 tab 09/29/23 mcg chewable tablet cholecalciferol (vitamin D3) 25 25 mcg PO DAILY #30 caps 12/05/23 mcg (1,000 unit) capsule lisinopril 10 mg tablet 10 mg PO DAILY #30 tabs 12/05/23 rosuvastatin 5 mg tablet 5 mg PO DAILY #90 tabs 01/02/24 omeprazole magnesium 20 mg 20 mg PO DAILY 28 days #28 tabs 01/03/24 tablet,delayed release (Prilosec OTC) sennosides 8.6 mg-docusate sodium 1 - 2 tab-cap (1 - 2 x 8.6-50 mg) 01/03/24 50 mg tablet (Senokot-S) PO BID PRN constipation #60 tabs Results & Data (ED) Vital Signs Vital Signs - 24 hr 01/28/24 10:58 01/28/24 11:27 01/28/24 11:29 Temperature 36.7 C Temperature Source Temporal Artery Scan Pulse Rate 85 79 Pulse Rate [Apical] 95 H Pulse Rhythm Regular Pulse Strength [Apical] Normal Respiratory Rate 16 18 Respiratory Effort / Characteristics Non-Labored Spontaneous Non-Labored Spontaneous Respiratory Depth Normal Normal Respiratory Pattern Regular Blood Pressure 183/114 H Blood Pressure [Left Arm] 157/84 H Blood Pressure Mean 137 Blood Pressure Mean [Left Arm] 108 Pulse Oximetry 98 98 98 Oxygen Delivery Method Room Air Room Air Room Air Sepsis Recent Fever Within 48 Hours No Sepsis New/Unexplained Change in Mental Status N/A Sepsis Action Taken by Nursing No Action Required 01/28/24 11:36 01/28/24 12:15 Temperature Temperature Source Pulse Rate 83 Pulse Rate [Apical] 89 Pulse Rhythm Pulse Strength [Apical] Normal Respiratory Rate 18 Respiratory Effort / Characteristics Non-Labored Spontaneous Respiratory Depth Normal Respiratory Pattern Regular Blood Pressure Blood Pressure [Left Arm] 138/83 Blood Pressure Mean Blood Pressure Mean [Left Arm] 101 Pulse Oximetry 97 Oxygen Delivery Method Room Air Sepsis Recent Fever Within 48 Hours Sepsis New/Unexplained Change in Mental Status Sepsis Action Taken by Nursing Laboratory Data 01/28/24 11:20 01/28/24 11:20 Lab Results 01/28/24 Range/Units 11:20 WBC 6.02 (4.8-10.8) K/ul RBC 4.38 (4.20-5.40) M/uL Hgb 13.6 (12.0-16.0) g/dl Hct 39.2 (37.0-47.0) % MCV 89.5 (80.0-100.0) fL MCH 31.1 (25.0-34.0) pg MCHC 34.7 (32.0-36.0) g/dL RDW Std Deviation 39.1 (36.4-46.3) fL RDW Coeff of Flakita 12.0 (11.5-14.5) % Plt Count 316 (130-400) K/uL MPV 9.8 (9.4-12.4) fL Immature Gran % (Auto) 0.2 % Neut % (Auto) 56.1 % Lymph % (Auto) 30.2 % [place] % (Auto) 8.6 % Eos % (Auto) 3.7 % Baso % (Auto) 1.2 % Neut # (Auto) 3.38 (1.40-6.50) K/uL Lymph # (Auto) 1.82 (1.20-3.40) K/uL [place] # (Auto) 0.52 (0.11-0.59) K/uL Eos # (Auto) 0.22 (0.00-0.50) K/uL Baso # (Auto) 0.07 (0.00-0.20) K/uL Immature Gran # (Auto) 0.01 (0.01-0.20) K/uL Sodium 140 (136-145) mmol/L Potassium 3.9 (3.5-5.1) mmol/L Chloride 104 (98-107) mmol/L Carbon Dioxide 28 (21-32) mmol/L Anion Gap 8 (3-11) BUN 13 (6-23) mg/dl Creatinine 0.74 (0.6-1.2) mg/dl Est Cr Clr Drug Dosing 82.2 ml/min eGFR 90.29 BUN/Creatinine Ratio 17.6 (10-20) Glucose 94 (70-99(Fasting)) mg/dl Calcium 10.4 H (8.6-10.3) mg/dl Total Bilirubin 0.6 (0.2-1.0) mg/dl AST 30 (13-39) U/L ALT 33 (7-52) U/L Alkaline Phosphatase 55 (34-104) U/L Troponin I High Sens 5.1 (0-14) pg/ml Total Protein 7.6 (6.0-8.3) gm/dl Albumin 4.7 (3.4-5.0) gm/dl Globulin 2.9 (2.5-4.0) gm/dl Albumin/Globulin Ratio 1.6 (0.9-2) Lipase 54 (11-82) U/L TSH 1.321 (0.300-4.500) uIu/ml Imaging Data Radiologist's Impression: Chest X-Ray 01/28/24 11:08 XR chest 1V portable HISTORY: 63 years-old Female Chest pain, nonspecific COMPARISON: 03/09/2022 TECHNIQUE: AP view of the chest FINDINGS: Cardiomediastinal and hilar silhouettes are within normal limits. No pneumothorax, pleural effusion or airspace consolidation. Degenerative changes of the shoulders and spine. Bones appear grossly intact. IMPRESSION: No acute process. ACT 112: Negative or not required by law. The above report was generated using voice recognition software. It may contain grammatical, syntax or spelling errors. Electronically signed by: Cam Dupont M.D. 01/28/2024 11:20 AM Discharge Plan Visit Data Chief Complaint: Cardiac Assessment Stated Complaint: HIGH BP, IRREGULAR HEARTRATE, SOB ED Provider: Bert Null Discharge Problem: V tach, SVT (supraventricular tachycardia), Pre-syncope, Hypertension Patient Disposition: Admitted As Inpatient Discharge Instructions Interventions: ED Discharge Assessment Last Done: 01/28/24 15:38
--- NOTE | 2024-01-28 13:15 | History & Physical Report ---
Date of Service January 28, 2024 Assessment & Plan (1) SVT (supraventricular tachycardia): Plan: Consult cardiology Check echocardiogram Close monitoring on ekg monitor Follow electrolytes Will discuss with cardiology. Consider beta-mg instead of lisinopril (2) V tach: Plan: Consult cardiology (3) Hypertension: Plan: Continue lisinopril for now Monitor BP (4) Hypothyroidism: Plan: Continue thyroid replacement Check thyroid function testing (5) Pre-syncope: Plan: Check orthostatic BP Plan Patient is a full code Patient is low risk for VTE. Will encourage ambulation Total 75 minutes spent in care coordination for this patient History of Present Illness Chief Complaint: Palpitations Primary Care Provider: Samantha Bennett PA-C Sheila Loving is a 63-year-old female with a prior history of GERD, hypothyroidism, hypertension and situational anxiety presenting for irregular heartbeat/high blood pressure patient notes that this morning she had episodes where her blood pressure felt high. She also notes that her heart rate was fluctuant between the 50s and 100s. She notes that she will did wear a Zio patch heart monitor over the past few weeks and was told the results included ventricular tachycardia, PVCs and SVT. She notes that she has had episodes today that felt like previous tachycardia episodes. She did not have any actual passing out episode. She does feel lightheaded with these episodes. No current nausea, vomiting or diarrhea. No chest pain or shortness of breath. On review of the Zio patch results on [facility] she does have episodes of SVT and ventricular tachycardia that correlates with symptoms. ED provider notified cardiology loss prevention guard and they recommend admission. Patient was recently in [place] and was diagnosed with cellulitis of the left ankle. She completed a course of doxycycline. Her EKG shows sinus rhythm and troponin is normal Allergies Allergy/AdvReac Type Severity Reaction Status Date / Time Penicillins Allergy Mild RASH Verified 12/05/23 14:26 Home Medications Medication Instructions Recorded Confirmed Type Lactobacillus 1 cap PO QAM 09/20/18 01/28/24 History acidophilus-Bifidobac.animalis 31 billion cell capsule polyethylene glycol 3350 17 gram 17 g PO DAILY PRN constipation #5 03/24/22 01/28/24 Rx oral powder packet (Miralax) ea mecobalamin (vitamin B12) 1,000 1,000 mcg PO DAILY #1 tab 09/29/23 01/28/24 Rx mcg chewable tablet cholecalciferol (vitamin D3) 25 25 mcg PO DAILY #30 caps 12/05/23 01/28/24 Rx mcg (1,000 unit) capsule lisinopril 10 mg tablet 10 mg PO DAILY #30 tabs 12/05/23 01/28/24 Rx rosuvastatin 5 mg tablet 5 mg PO DAILY #90 tabs 01/02/24 01/28/24 Rx levothyroxine 75 mcg tablet 75 mcg PO DAILY 01/03/24 01/28/24 History omeprazole magnesium 20 mg 20 mg PO DAILY 28 days #28 tabs 01/03/24 01/28/24 Rx tablet,delayed release (Prilosec OTC) sennosides 8.6 mg-docusate sodium 1 - 2 tab-cap (1 - 2 x 8.6-50 mg) 01/03/24 01/28/24 Rx 50 mg tablet (Senokot-S) PO BID PRN constipation #60 tabs Past Med/Surg History Problem List (Updated 01/28/24 @ 14:34 by Mahendra Carr DO) Pre-syncope V tach SVT (supraventricular tachycardia) Lumbar radiculopathy GERD (gastroesophageal reflux disease) Hypertension (Acute) Dyslipidemia (Chronic) Hypothyroidism (Acute) Obesity (BMI 30-39.9) Medical History Leg length discrepancy Greater trochanteric pain syndrome COLTEN positive History of blood transfusion 1976 during childbirth, vaginal delivery Hx of chest pain ~2019, had stress test>no findings, "due to anxiety" Dysphagia persistent since 12/2021 dilatation with both foods and liquids, denies choking; sees GI 03/11/22 Surgical History History of total right knee replacement (~2022) History of appendectomy History of carpal tunnel release of both wrists Hx of arthroscopy of knee Hx of colonoscopy History of esophagogastroduodenoscopy (EGD) History of total left knee replacement History of bunionectomy History of tubal ligation Family History Mother Diabetes Myocardial infarction Aunt Breast cancer Grandfather (Maternal) Colorectal cancer Social History Smoking Status: Never smoker Second Hand Exposure: Yes (as a child); Do You Dip or Chew Tobacco: No; Hx Alcohol Use: Yes Alcohol type: beer Alcohol Intake Frequency: 2-4 x/Month Hx Substance Use: No Preferred Language: Faroese Communication Ability: Effective Visual Impairment: Diminished Hearing Ability: Normal Train Braker Required: No Beliefs That Will Affect Care: None marital status: Current Living Situation: Spouse Current Living Situation Comment: two story, its possible to have it on one floor, 12 stairs to second jatinder current occupational status: employed Feels Safe at Home: Yes Childhood Exposure to Second-Hand Smoke: Yes Diet: regular caffeine: Yes Dental Care, Regularly: Yes Physical Activity Frequency: Daily Physical Activity Frequency Comment: WALK Seatbelt Use: always Sunscreen Use: Yes Assistive Devices: Walker Review of Systems Review of Systems: Constitutional- no fever; no weight loss Eyes- no acute visual changes ENT- no sinus drainage; no pharyngitis Pulmonary- no cough, no wheezing, no shortness of breath Cardiac-intermittent chest pain, palpitations, presyncope, chronic leg swelling GI- no nausea, no vomiting, no diarrhea, no melena, no hematochezia - no dysuria, no hematuria Musculoskeletal- no arthralgias, no myalgias Derm- no rashes, no new skin lesions, no changing skin lesions Hematologic- no unusual bruising, no unusual bleeding Lymphatics- no adenopathy Endocrine- no polyuria or polydipsia; no heat or cold intolerance Neuro- no headaches, no focal neurologic symptoms Psych- no anxiety, no depression Physical Exam Physical Exam: General- adult female seen at bedside with her present Head- atraumatic Eyes- PERRL, EOMI, anicteric ENT- oropharynx clear Neck- supple, no JVD, no adenopathy, no thyromegaly; carotids +2/2, no bruits appreciated Lungs- clear to auscultation and percussion Heart- regular rhythm; no murmur, no gallop, no rub appreciated Abdomen- normal bowel sounds, soft, nontender, no masses or hepatosplenomegaly Extremities-chronic lymphedema, no calf tenderness; peripheral pulses intact Neuro- alert, oriented x 3; PERRL, EOMI; no facial palsy; no dysarthria; motor 5/5 bilaterally; Skin- warm & dry Results & Data Results & Data Vital Signs (Past 12 Hours) Vital Signs Temp Pulse Pulse Resp BP BP Pulse Ox 01/28/24 12:15 89 18 138/83 97 01/28/24 11:36 83 01/28/24 11:29 95 H 18 157/84 H 98 01/28/24 11:27 79 98 01/28/24 10:58 36.7 C 85 16 183/114 H 98 O2 Del Method 01/28/24 12:15 Room Air 01/28/24 11:36 01/28/24 11:29 Room Air 01/28/24 11:27 Room Air 01/28/24 10:58 Room Air Diagnostic Findings Laboratory Results WBC 6.02 K/ul (4.8-10.8) 01/28/24 11:20 RBC 4.38 M/uL (4.20-5.40) 01/28/24 11:20 Hgb 13.6 g/dl (12.0-16.0) 01/28/24 11:20 Hct 39.2 % (37.0-47.0) 01/28/24 11:20 MCV 89.5 fL (80.0-100.0) 01/28/24 11:20 MCH 31.1 pg (25.0-34.0) 01/28/24 11:20 MCHC 34.7 g/dL (32.0-36.0) 01/28/24 11:20 RDW Std Deviation 39.1 fL (36.4-46.3) 01/28/24 11:20 RDW Coeff of Flakita 12.0 % (11.5-14.5) 01/28/24 11:20 Plt Count 316 K/uL (130-400) 01/28/24 11:20 MPV 9.8 fL (9.4-12.4) 01/28/24 11:20 Immature Gran % (Auto) 0.2 % 01/28/24 11:20 Neut % (Auto) 56.1 % 01/28/24 11:20 Lymph % (Auto) 30.2 % 01/28/24 11:20 [place] % (Auto) 8.6 % 01/28/24 11:20 Eos % (Auto) 3.7 % 01/28/24 11:20 Baso % (Auto) 1.2 % 01/28/24 11:20 Neut # (Auto) 3.38 K/uL (1.40-6.50) 01/28/24 11:20 Lymph # (Auto) 1.82 K/uL (1.20-3.40) 01/28/24 11:20 [place] # (Auto) 0.52 K/uL (0.11-0.59) 01/28/24 11:20 Eos # (Auto) 0.22 K/uL (0.00-0.50) 01/28/24 11:20 Baso # (Auto) 0.07 K/uL (0.00-0.20) 01/28/24 11:20 Immature Gran # (Auto) 0.01 K/uL (0.01-0.20) 01/28/24 11:20 Sodium 140 mmol/L (136-145) 01/28/24 11:20 Potassium 3.9 mmol/L (3.5-5.1) 01/28/24 11:20 Chloride 104 mmol/L (98-107) 01/28/24 11:20 Carbon Dioxide 28 mmol/L (21-32) 01/28/24 11:20 Anion Gap 8 (3-11) 01/28/24 11:20 BUN 13 mg/dl (6-23) 01/28/24 11:20 Creatinine 0.74 mg/dl (0.6-1.2) 01/28/24 11:20 Est Cr Clr Drug Dosing 82.2 ml/min 01/28/24 11:20 eGFR 90.29 01/28/24 11:20 BUN/Creatinine Ratio 17.6 (10-20) 01/28/24 11:20 Glucose 94 mg/dl (70-99(Fasting)) 01/28/24 11:20 Calcium 10.4 mg/dl (8.6-10.3) H 01/28/24 11:20 Total Bilirubin 0.6 mg/dl (0.2-1.0) 01/28/24 11:20 AST 30 U/L (13-39) 01/28/24 11:20 ALT 33 U/L (7-52) 01/28/24 11:20 Alkaline Phosphatase 55 U/L (34-104) 01/28/24 11:20 Troponin I High Sens 5.1 pg/ml (0-14) 01/28/24 11:20 Total Protein 7.6 gm/dl (6.0-8.3) 01/28/24 11:20 Albumin 4.7 gm/dl (3.4-5.0) 01/28/24 11:20 Globulin 2.9 gm/dl (2.5-4.0) 01/28/24 11:20 Albumin/Globulin Ratio 1.6 (0.9-2) 01/28/24 11:20 Lipase 54 U/L (11-82) 01/28/24 11:20 Impressions Chest X-Ray 01/28/24 11:08 XR chest 1V portable HISTORY: 63 years-old Female Chest pain, nonspecific COMPARISON: 03/09/2022 TECHNIQUE: AP view of the chest FINDINGS: Cardiomediastinal and hilar silhouettes are within normal limits. No pneumothorax, pleural effusion or airspace consolidation. Degenerative changes of the shoulders and spine. Bones appear grossly intact. IMPRESSION: No acute process. ACT 112: Negative or not required by law. The above report was generated using voice recognition software. It may contain grammatical, syntax or spelling errors. Electronically signed by: Cam Dupont M.D. 01/28/2024 11:20 AM Code Status & VTE Plan Code Status Full code
[2024-01-28 15:20] LABS: Thyroid Stimulating Hormone 1.321 uIu/ml (0.300-4.500)
[2024-01-28] MEDS ORDERED: DOCUSATE SODIUM/SENNA 50/8.6MG TAB PO PRN (16:00)
[2024-01-28] MEDS ORDERED: POLYETHYLENE (MIRALAX) 17 GM PACK PO PRN ×2 (16:00)
[2024-01-28] MEDS ORDERED: NITROGLYCERIN SL 0.4 MG/TAB TAB SL PRN (16:00)
[2024-01-28] MEDS ORDERED: ONDANSETRON INJ 2 MG/ML 2 ML VIAL IV PRN (16:00)
[2024-01-28] MEDS ORDERED: ALUMINUM/MAGNESIUM SUSP 30 ML UDC PO PRN (16:00)
[2024-01-28 16:08] VITALS: RESP 18
[2024-01-28] MEDS: ACETAMINOPHEN 325 MG TAB PO PRN (19:05)
[2024-01-28] MEDS ORDERED: Nursing to Pharmacy Communication SCH (19:15)
[2024-01-28] MEDS: CHOLECALCIFEROL 25 MCG (1000 UNITS) TAB PO SCH (20:50)
[2024-01-28] MEDS: ROSUVASTATIN CALCIUM 5 MG TAB PO SCH (20:50)
[2024-01-28] MEDS: OMEGA-3 (PURIFIED FISH OIL) 1 GM CAP PO SCH (20:50)
[2024-01-29 05:54] LABS: Hematocrit (blood only) 35.5 % (37.0-47.0); Hemoglobin 12.4 g/dl (12.0-16.0); Mean Corpuscular Hemoglobin 31.1 pg (25.0-34.0); Mean Corpuscular Hgb Conc 34.9 g/dL (32.0-36.0); Mean Platelet Volume 9.7 fL (9.4-12.4); Platelet Count 253 K/uL (130-400); RDW Coefficient of Variation 12.2 % (11.5-14.5); Red Blood Count 3.99 M/uL (4.20-5.40); White Blood Count 4.46 K/ul (4.8-10.8)
[2024-01-29 06:09] LABS: BUN Creatinine Ratio 20.5 (10-20); Calcium 9.6 mg/dl (8.6-10.3); Creatinine Clr Calc Pharmacy 82.9 ml/min; Magnesium 1.8 mg/dl (1.7-2.4)
[2024-01-29] MEDS: LEVOTHYROXINE SODIUM 75 MCG TABLET PO SCH (06:19)
[2024-01-29 07:41] VITALS: TEMP 97.9
[2024-01-29] MEDS: PANTOprazole 40 MG TAB PO SCH (07:43)
[2024-01-29] MEDS: ADVANCED PROBIOTIC 625 MG CAPSULE PO SCH (07:44)
[2024-01-29] MEDS: lisinopril 10 MG TAB PO SCH (07:44)
[2024-01-29] MEDS: ASPIRIN 81 MG ECTAB PO SCH (07:44)
[2024-01-29] MEDS ORDERED: ROSUVASTATIN CALCIUM 5 MG TAB PO SCH (09:00)
[2024-01-29] MEDS ORDERED: CHOLECALCIFEROL 25 MCG (1000 UNITS) TAB PO SCH (09:00)
--- NOTE | 2024-01-29 09:07 | Cardiology Consultation ---
Date of Consultation January 29, 2024 Assessment & Plan (1) Palpitations: (2) Premature atrial contractions: (3) Premature ventricular contractions: (4) Nonsustained ventricular tachycardia: (5) Frequent PVCs: (6) Labile hypertension: Plan Palpitations * Personal review of the patient ZIO monitor reveals symptoms association with sinus rhythm, sinus tachycardia, atrial ectopy, ventricular ectopy, and SVT. * 3.5% ventricular ectopy burden via December 2023 Zio Monitor * Two reported episodes of nonsustained ventricular tachycardia. Asymptomatic. One appears to be complex ectopy only. One was 6 beats in duration on January 09, 2024 at 04:34:33 AM Preserved LV systolic function Labile hypertension Dyslipidemia Family history of ischemic heart disease. Recommendations: Initiate beta-mg therapy with Metoprolol succinate 25 mg/day Initiate ASA 81 mg/day for now Continue lisinopril at 10 mg/day Continue rosuvastatin. Assess lipids (have not been checked since initiation of rosuvastatin) Outpatient Lexiscan (unable to ambulate for MARYCHUY, avoid DSE due to arrhythmias) Outpatient evaluation for sleep apnea Patient reassured. Hydration encouraged. Outpatient cardiology follow-up as previously scheduled with Dr. Wu Supervising Physician Co-Signing Physician Notes Patient discharged before my evaluation. History of Present Illness Reason for Consultation: SVT, presyncope, VT on Zio patch Requesting Physician: Dr. Carr Attending Physician: Dr. Zohreh Shin MD History of Present Illness Mrs. Sheila Loving is a very pleasant 63-year-old female who presented to [facility] ER on January 28, 2024 for evaluation of high blood pressure and palpitations. She has not felt well for a few months. She describes times of feeling lightheaded at times, especially with positional changes. She has been experiencing palpitations. Blood pressures have been labile requiring recent adjustments through prior PCP. She notes that she has a lot going on at this time. She recently changed doctors and was evaluated by Samantha Bennett who requested a ZIO monitor to evaluate complaints of palpitations. She had a follow-up appointment with Junetuesday and was referred to Dr. Joe Wu for cardiology consultation this upcoming Tuesday. Yesterday the patient awoke and did not feel so good. She had palpitations. She took her blood pressure via an upper arm Omron cuff and observed hypertensive readings as follows: 160/106 with a heart rate of 50, 170/99 with a heart rate of 79, and 153/94 with a heart rate of 102 bpm. Due to these abnormal readings patient presented to the [facility] ER. EKG revealed normal sinus rhythm at 81 bpm, without acute ST segment change. High-sensitivity troponin was 5.1. Potassium and thyroid were okay. Magnesium was not obtained though is pending for this morning. Chest x-ray showed no acute cardiopulmonary process. Resting echocardiography was technically difficult, with preserved LV systolic function, mild mitral regurgitation only. Blood pressures have been labile throughout hospitalization, initially 183/114. Lowest reading 102/62. Past Medical and Surgical History: Hypertension. Bystolic discontinued in September. Initially prescribed lisinopril 20 which was later decreased to 5 and most recently 10 mg/day. Dyslipidemia. Intolerant to simvastatin. Tolerating rosuvastatin. Obesity Hypothyroidism GERD Hiatal hernia Chronic dysphagia Arthritis Bilateral knee replacements Family History: Mother had CAD and CHF, undergoing CABG x 4 at the age of 68, passing at the age of 75. Father with a PA at the age of 78. 1 brother and 2 sisters without cardiac issues. Social History: Never smoker. Social alcohol only. No illegal drug use. 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. , present at bedside. Allergies Allergy/AdvReac Type Severity Reaction Status Date / Time Penicillins Allergy Mild RASH Verified 12/05/23 14:26 Home Medications Medication Instructions Recorded Confirmed Type Lactobacillus 1 cap PO QAM 09/20/18 01/28/24 History acidophilus-Bifidobac.animalis 31 billion cell capsule polyethylene glycol 3350 17 gram 17 g PO DAILY PRN constipation #5 03/24/22 01/28/24 Rx oral powder packet (Miralax) ea mecobalamin (vitamin B12) 1,000 1,000 mcg PO DAILY #1 tab 09/29/23 01/28/24 Rx mcg chewable tablet cholecalciferol (vitamin D3) 25 25 mcg PO DAILY #30 caps 12/05/23 01/28/24 Rx mcg (1,000 unit) capsule lisinopril 10 mg tablet 10 mg PO DAILY #30 tabs 12/05/23 01/28/24 Rx rosuvastatin 5 mg tablet 5 mg PO DAILY #90 tabs 01/02/24 01/28/24 Rx levothyroxine 75 mcg tablet 75 mcg PO DAILY 01/03/24 01/28/24 History omeprazole magnesium 20 mg 20 mg PO DAILY 28 days #28 tabs 01/03/24 01/28/24 Rx tablet,delayed release (Prilosec OTC) sennosides 8.6 mg-docusate sodium 1 - 2 tab-cap (1 - 2 x 8.6-50 mg) 01/03/24 01/28/24 Rx 50 mg tablet (Senokot-S) PO BID PRN constipation #60 tabs aspirin 81 mg tablet,delayed 81 mg PO QAM #30 tabs 01/29/24 Rx release metoprolol succinate 25 mg 25 mg PO QAM #30 tabs 01/29/24 Rx tablet,extended release 24 hr Patient History Medical History Leg length discrepancy Greater trochanteric pain syndrome COLTEN positive History of blood transfusion 1976 during childbirth, vaginal delivery Hx of chest pain ~2019, had stress test>no findings, "due to anxiety" Dysphagia persistent since 12/2021 dilatation with both foods and liquids, denies choking; sees GI 03/11/22 Surgical History History of total right knee replacement (~2022) History of appendectomy History of carpal tunnel release of both wrists Hx of arthroscopy of knee rt. Hx of colonoscopy History of esophagogastroduodenoscopy (EGD) 12/2021; w/dilation History of total left knee replacement History of bunionectomy History of tubal ligation Family History Mother Diabetes Myocardial infarction Aunt Breast cancer Grandfather (Maternal) Colorectal cancer Social History Smoking Status: Never smoker Second Hand Exposure: Yes (as a child); Do You Dip or Chew Tobacco: No; Hx Alcohol Use: No Hx Substance Use: No Preferred Language: Georgian Communication Ability: Effective Visual Impairment: Diminished Hearing Ability: Normal Plastic Fixture Builder Required: No Beliefs That Will Affect Care: None marital status: Current Living Situation: Spouse Current Living Situation Comment: two story, its possible to have it on one floor, 12 stairs to second jatinder current occupational status: employed Other Information That Helps Us Care for You: No Feels Safe at Home: Yes Safety Concerns: Feels Safe At This Time Childhood Exposure to Second-Hand Smoke: Yes Diet: regular caffeine: Yes Dental Care, Regularly: Yes Physical Activity Frequency: Daily Physical Activity Frequency Comment: WALK Seatbelt Use: always Sunscreen Use: Yes Assistive Devices: Glasses Assistive Devices Comment: Reading glasses Review of Systems Review of Systems: Complete Review of Systems is as stated above, negative, or noncontributory. Physical Exam Physical Exam: General: A&Ox3. NAD. Obese. HENT: Normocephalic. Atraumatic. Eyes: PER. Conjunctiva pink, sclera clear. Neck: No carotid bruits. No JVD. Heart: RRR, 84 bpm. No murmur. Lungs: Clear to auscultation. Abdomen: +BS. Extremities: Varicosities. No clubbing, cyanosis, or edema. Limited neurological examination is without focal deficits. Pulses: Posterior tibial=2/4. Results & Data Vital Signs (Past 12 Hours) Vital Signs Temp Pulse Pulse Resp BP Pulse Ox O2 Del Method 01/29/24 07:40 36.6 C 79 18 144/91 H 96 Room Air 01/29/24 02:46 36.7 C 69 18 111/68 94 Room Air 01/28/24 22:46 36.6 C 75 18 102/62 95 Room Air 01/28/24 22:40 77 Laboratory Results Cardiac Enzymes 01/28/24 Range/Units 11:20 AST 30 (13-39) U/L Troponin I High Sens 5.1 (0-14) pg/ml CBC 01/28/24 01/29/24 Range/Units 11:20 05:25 WBC 6.02 4.46 L (4.8-10.8) K/ul RBC 4.38 3.99 L (4.20-5.40) M/uL Hgb 13.6 12.4 (12.0-16.0) g/dl Hct 39.2 35.5 L (37.0-47.0) % Plt Count 316 253 (130-400) K/uL Neut # (Auto) 3.38 (1.40-6.50) K/uL Lymph # (Auto) 1.82 (1.20-3.40) K/uL [place] # (Auto) 0.52 (0.11-0.59) K/uL Eos # (Auto) 0.22 (0.00-0.50) K/uL Baso # (Auto) 0.07 (0.00-0.20) K/uL Comprehensive Metabolic Panel 01/28/24 01/29/24 Range/Units 11:20 05:25 Sodium 140 138 (136-145) mmol/L Potassium 3.9 4.0 (3.5-5.1) mmol/L Chloride 104 104 (98-107) mmol/L Carbon Dioxide 28 27 (21-32) mmol/L BUN 13 15 (6-23) mg/dl Creatinine 0.74 0.73 (0.6-1.2) mg/dl Glucose 94 100 H (70-99(Fasting)) mg/dl Calcium 10.4 H 9.6 (8.6-10.3) mg/dl AST 30 (13-39) U/L ALT 33 (7-52) U/L Alkaline Phosphatase 55 (34-104) U/L Total Protein 7.6 (6.0-8.3) gm/dl Albumin 4.7 (3.4-5.0) gm/dl Intake and Output 01/28/24 01/29/24 01/29/24 22:59 06:59 14:59 Intake Total 350 / 470 120 / 470 Balance 350 / 470 120 / 470 Intake: Oral 350 / 470 120 / 470 Other: # Unmeasured Voids 1 2 Weight 90.083 kg Weight Measurement Method Built in [facility] Built in [facility] Diagnostic Findings December 29, 2023 to January 11, 2024 Zio Monitor: Patient had a min HR of 57 bpm, max HR of 245 bpm, and avg HR of 88 bpm. Predominant underlying rhythm was Sinus Rhythm. 2 Ventricular Tachycardia runs occurred, the run with the fastest interval lasting 6 beats with a max rate of 174 bpm, the longest lasting 4 beats with an avg rate of 107 bpm. 17 Supraventricular Tachycardia runs occurred, the run with the fastest interval lasting 35.4 secs with a max rate of 245 bpm, the longest lasting 37.8 secs with an avg rate of 201 bpm. Some episodes of Supraventricular Tachycardia may be possible Atrial Tachycardia with variable block. Supraventricular Tachycardia was detected within +/- 45 seconds of symptomatic patient event(s). Isolated SVEs were rare (<1.0%), SVE Couplets were rare (<1.0%), and SVE Triplets were rare (<1.0%). Isolated VEs were occasional (3.5%, 17840), VE Couplets were rare (<1.0%, 825), and VE Triplets were rare (<1.0%, 23). Ventricular Bigeminy and Trigeminy were present. Symptomatic events correlate with supraventricular tachycardia, and ventricular ectopy. January 28, 2024 TTE Interpretation Summary ([facility], Dr. Quintanilla): Technically difficult study to interpret due to difficult acoustic windows. LVEF is 55 to 60%. The right ventricle was normal in size. The right ventricular systolic function is normal. Mild mitral regurgitation. No pericardial effusion. Grade 1 diastolic dysfunction. January 28, 2024 EKG: Normal sinus rhythm at 81 bpm. QTc 436 ms.
[2024-01-29] MEDS: CYANOCOBALAMIN (B-12) 500 MCG TABLET PO SCH (09:19)
[2024-01-29 09:36] LABS: Chol HDL Ratio 3.5 (0-5)
[2024-01-29] MEDS: METOPROLOL SUCC 25MG EXT REL TAB PO SCH (09:58)
[2024-01-29 11:09] VITALS: BP 127/83; PULSE 80; O2SAT 98
--- NOTE | 2024-01-29 11:39 | Discharge Summary ---
Discharge Summary Date of Service January 29, 2024 Principal Dx & Hospital Course #1 = Principal Diagnosis (1) Palpitations: (2) Labile hypertension: (3) Frequent PVCs: (4) Nonsustained ventricular tachycardia: (5) Premature ventricular contractions: (6) Premature atrial contractions: Yariel Sheila Loving is a 63-year-old female with a PMHx significant for GERD, hypothyroidism, hypertension and situational anxiety presenting for further evaluation of irregular heartbeat/palpitations as well as concern for high blood pressure. Patient reportedly had been following up with her PCP and had a Zio patch placed before presentation. EKG on admission noted normal sinus rhythm. High- sensitivity troponin was normal. Her echo noted an EF of 55 to 60% and normal right ventricular function with noted mild mitral regurgitation. Chest x-ray was unremarkable. The Zio patch results were reviewed by cardiology who noted episodes of sinus rhythm, sinus tachycardia, atrial ectopy, ventricular ectopy, and SVT. They also noted there were 2 episodes of asymptomatic nonsustained ventricular tachycardia. Cardiology started the patient on metoprolol succinate 25 mg daily and advised to continue with the previously started aspirin 81 mg daily. Also advised that she should continue with her home lisinopril 20mg daily as well as her home rosuvastatin. Lipid panel was repeated and was unremarkable. Cardiology also recommended an outpatient Lexiscan as well as sleep apnea evaluation. They recommended that she keep her scheduled follow-up with Dr. Wu after discharge as currently scheduled. On the day of discharge patient reported no further episodes of palpitations. Her blood pressure remained normotensive. She was anxious for discharge. Patient advised to keep close follow-up after discharge with both cardiology and her primary care provider. She left in stable condition. Notes For Next Care Provider per cardiology: Needs outpatient Lexiscan and sleep apnea evaluation. Please ensure close follow-up with cardiology after discharge Medication Changes From Visit Per Cardiology: Metoprolol succinate 25 mg daily Aspirin 81 mg daily Admission HPI Per Admitting Provider Sheila Loving is a 63-year-old female with a prior history of GERD, hypothyroidism, hypertension and situational anxiety presenting for irregular heartbeat/high blood pressure patient notes that this morning she had episodes w here her blood pressure felt high. She also notes that her heart rate was fluctuant between the 50s and 100s. She notes that she will did wear a Zio patch heart monitor over the past few weeks and was told the results included ventricular tachycardia, PVCs and SVT. She notes that she has had episodes today that felt like previous tachycardia episodes. She did not have any actual passing out episode. She does feel lightheaded with these episodes. No current nausea, vomiting or diarrhea. No chest pain or shortness of breath. On review of the Zio patch results on Babar she does have episodes of SVT and ventricular tachycardia that correlates with symptoms. ED provider notified cardiology apprenticeship consultant and they recommend admission. Patient was recently in [place] and was diagnosed with cellulitis of the left ankle. She completed a course of doxycycline. Her EKG shows sinus rhythm and troponin is normal Admission Exam Per Admitting Provider General- adult female seen at bedside with her present Head- atraumatic Eyes- PERRL, EOMI, anicteric ENT- oropharynx clear Neck- supple, no JVD, no adenopathy, no thyromegaly; carotids +2/2, no bruits appreciated Lungs- clear to auscultation and percussion Heart- regular rhythm; no murmur, no gallop, no rub appreciated Abdomen- normal bowel sounds, soft, nontender, no masses or hepatosplenomegaly Extremities-chronic lymphedema, no calf tenderness; peripheral pulses intact Neuro- alert, oriented x 3; PERRL, EOMI; no facial palsy; no dysarthria; motor 5/5 bilaterally; Skin- warm & dry Discharge Exam General: Alert, oriented. No acute distress Psych: Appropriate mood and affect Neuro: No gross deficits while sitting in bed HEENT: NC/AT CV: RRR Resp: Breath sounds clear bilaterally, no increased effort of breathing Abdomen: Soft, nontender, nondistended. Extremities: Trace edema in lower extremities bilaterally Updated Medication List Medication Instructions Recorded Confirmed Type Lactobacillus 1 cap PO QAM 09/20/18 01/28/24 History acidophilus-Bifidobac.animalis 31 billion cell capsule polyethylene glycol 3350 17 gram 17 g PO DAILY PRN constipation #5 03/24/22 01/28/24 Rx oral powder packet (Miralax) ea mecobalamin (vitamin B12) 1,000 1,000 mcg PO DAILY #1 tab 09/29/23 01/28/24 Rx mcg chewable tablet cholecalciferol (vitamin D3) 25 25 mcg PO DAILY #30 caps 12/05/23 01/28/24 Rx mcg (1,000 unit) capsule lisinopril 10 mg tablet 10 mg PO DAILY #30 tabs 12/05/23 01/28/24 Rx rosuvastatin 5 mg tablet 5 mg PO DAILY #90 tabs 01/02/24 01/28/24 Rx levothyroxine 75 mcg tablet 75 mcg PO DAILY 01/03/24 01/28/24 History omeprazole magnesium 20 mg 20 mg PO DAILY 28 days #28 tabs 01/03/24 01/28/24 Rx tablet,delayed release (Prilosec OTC) sennosides 8.6 mg-docusate sodium 1 - 2 tab-cap (1 - 2 x 8.6-50 mg) 01/03/24 01/28/24 Rx 50 mg tablet (Senokot-S) PO BID PRN constipation #60 tabs aspirin 81 mg tablet,delayed 81 mg PO QAM #30 tabs 01/29/24 Rx release metoprolol succinate 25 mg 25 mg PO QAM #30 tabs 01/29/24 Rx tablet,extended release 24 hr Hospital Stay Data Consultations 01/28/24 13:12 ED Decision to Admit Stat 01/28/24 16:00 Consult Cardiology Routine Diagnostic Imagining Performed Chest X-Ray 01/28/24 11:08 XR chest 1V portable HISTORY: 63 years-old Female Chest pain, nonspecific COMPARISON: 03/09/2022 TECHNIQUE: AP view of the chest FINDINGS: Cardiomediastinal and hilar silhouettes are within normal limits. No pneumothorax, pleural effusion or airspace consolidation. Degenerative changes of the shoulders and spine. Bones appear grossly intact. IMPRESSION: No acute process. ACT 112: Negative or not required by law. The above report was generated using voice recognition software. It may contain grammatical, syntax or spelling errors. Electronically signed by: Cam Dupont M.D. 01/28/2024 11:20 AM Discharge Instructions Given to Patient (Per Discharging Provider) Sheila, You are admitted and treated for palpitations. You was seen by the x ray equipment tester who recommends discharge with the medication metoprolol succinate 25 mg to be taken daily. They also advised that you continue with an aspirin 81 mg daily tablet. Continue with your home lisinopril and rosuvastatin. They would like you to have outpatient testing of your heart as well as for sleep apnea. Please keep your follow-up already scheduled with your x ray equipment tester Dr. Wu. Please keep close follow up with your primary care provider after discharge. Please do not hesitate to come back to the emergency room if your symptoms worsen or return. It was a pleasure taking care of you while you were here. Total Time Total Time Spent Total Time Spent (In Minutes): 65
--- NOTE | 2024-01-30 16:45 | Electrocardiogram Report ---
Test Reason : Blood Pressure : */* mmHG Vent. Rate : 81 BPM Atrial Rate : 81 BPM P-R Int : 142 ms QRS Dur : 84 ms QT Int : 376 ms P-R-T Axes : 16 -19 22 degrees QTcB Int : 436 ms Normal sinus rhythm Normal ECG When compared with ECG of 09-Mar-2022 16:11, No significant change was found Confirmed by Vikram Coombs ([id number]) on 01/30/2024 4:45:10 PM Referred By: REFERRED SELF Confirmed By: Vikram Coombs
== END 2024-01-29 14:10 | disposition home or self-care (01) | DRG 310 ==
LOC: ED 10:56 → SUATTDRO 14:21 → INTOOBSV 14:21 → 2S 14:21